=== PATIENT | male | born 1950 | race Caucasian/White ===

== ENCOUNTER 2017-08-27 14:00 | Outpatient (CLI) | payer MEDICARE ==
--- NOTE | 2017-08-27 15:06 | RAD ---
TWO VIEWS OF THE LUMBAR SPINE: Date: 08-27-17 Comparison: None available. History: Pain, fall. FINDINGS: Five lumbar type vertebral bodies are present with intact pedicles on frontal imaging. Lateral imagin g demonstrates mild anterolisthesis of L4 on L5 measuring approximately 5-6 mm. There is disc space n arrowing with degenerative endplate change at the level of the sacral junction. There is anterior ost eophyte formation at L2-3, L4-5, and L5-S1. There is multilevel lower lumbar spine facet hypertrophic change. No acute fracture or evidence of dislocation is seen. IMPRESSION: No acute findings. If there are radicular symptoms or symptoms persist, lumbar spine MRI advised. POS: [facility]
== END 2017-08-27 14:01 | disposition home or self-care (01) ==
LOC: TBSIIMAG 14:00
PROVIDERS: ATTEND Neurological Surgery
DX: M54.5 Low back pain (principal)
CPT/HCPCS: 72100

== ENCOUNTER 2021-06-07 12:32 | Outpatient (CLI) | payer OTHER | END 2021-06-07 12:33 | disposition home or self-care (01) | LOC: BICMRI 12:32 | PROVIDERS: ATTEND Neurological Surgery | DX: M47.26 Other spondylosis with radiculopathy, lumbar region (principal); M47.817 Spondylosis without myelopathy or radiculopathy, lumbosacral region; M54.50 Low back pain, unspecified; M48.061 Spinal stenosis, lumbar region without neurogenic claudication; M48.07 Spinal stenosis, lumbosacral region; Z98.890 Other specified postprocedural states | CPT/HCPCS: 72110; 72148 ==

== ENCOUNTER 2021-07-02 12:07 | Outpatient (CLI) | payer OTHER | END 2021-07-02 12:08 | disposition home or self-care (01) | LOC: BICRAD 12:07 | PROVIDERS: ATTEND Neurological Surgery | DX: M54.12 Radiculopathy, cervical region (principal); Z98.890 Other specified postprocedural states | CPT/HCPCS: 72050 ==

== ENCOUNTER 2021-09-04 12:12 | Outpatient (CLI) | payer OTHER | END 2021-09-04 12:13 | disposition home or self-care (01) | LOC: TBSIIMAG 12:12 | PROVIDERS: ATTEND Neurological Surgery | DX: M54.6 Pain in thoracic spine (principal); M47.814 Spondylosis without myelopathy or radiculopathy, thoracic region; M51.34 Other intervertebral disc degeneration, thoracic region | CPT/HCPCS: 72146 ==

== ENCOUNTER 2021-09-25 12:35 | Outpatient (CLI) | payer OTHER ==
[2021-09-25 14:14] LABS: Hemoglobin 11.7 g/dL (13.5-17.5); Mean Corpuscular HGB CONC 33.1 g/dL (32.0-36.0); Mean Corpuscular Hemoglobin 30.3 pg (27.0-33.0); Mean Corpuscular Volume 91.7 fl (81.2-95.1); Mean Platelet Volume 9.4 fl (7.4-10.4); Platelet Count 173 10x3/uL (150-450); RBC Distribution Width 12.8 % (11.5-14.5); Red Blood Cell (RBC) Count 3.86 10x6/uL (4.32-5.72); White Blood Cell (WBC) Count 7.6 10x3/uL (3.5-10.5)
[2021-09-25 14:45] LABS: INR-International Normal Ratio 1.1; PTT 24.1 sec (22.0-33.0); Prothrombin Time 12.3 sec (9.5-12.1)
[2021-09-25 22:06] LABS: SARS-CoV-2 PCR by NAA Not Detected (NotDetected)
== END 2021-09-25 12:36 | disposition home or self-care (01) ==
LOC: LABBT 12:35
PROVIDERS: ATTEND Neurological Surgery
DX: Z01.812 Encounter for preprocedural laboratory examination (principal); M51.26 Other intervertebral disc displacement, lumbar region; Z20.822 Contact with and (suspected) exposure to COVID-19
CPT/HCPCS: 85027; 85610; 85730; U0003; U0005

== ENCOUNTER 2024-03-25 11:46 | Outpatient (CLI) | payer OTHER ==
[2024-03-25 13:38] LABS: #Basophils 0.03 10x3/uL (0.0-0.2); %Basophils 0.5 % (0.0-1.0); %Eosinophils 4.5 % (0.0-10.0); %Lymphocytes 22.2 % (21.0-51.0); %Monocytes 7.2 % (0.0-10.0); %Neutrophils 65.3 % (42.0-75.0); Hematocrit 36.1 % (42.0-52.0); Hemoglobin 12.4 g/dL (14.0-18.0); Mean Corpuscular HGB CONC 34.3 g/dL (32.0-36.0); Mean Corpuscular Hemoglobin 31.5 pg (27.0-31.0); Mean Corpuscular Volume 91.6 fL (78.0-98.0); Mean Platelet Volume 9.1 fL (7.4-10.4); Platelet Count 203 10x3/uL (130-400); Red Blood Cell (RBC) Count 3.94 mill/uL (4.70-6.10)
[2024-03-25 13:57] LABS: INR-International Normal Ratio 1.5; PTT 30.2 sec (22.9-36.1); Prothrombin Time 18.6 sec (12.0-14.7)
[2024-03-25 13:58] LABS: Anion Gap 10 mmol/L (10-20); BUN (Urea Nitrogen) 17 mg/dL (8.4-25.7); Calc. Creatinine Clearance 0 mL/min (70-130); Calcium 9.5 mg/dL (7.8-10.44); Carbon Dioxide 28 mmol/L (23-31); Chloride 106 mmol/L (98-107); Estimated GFR 39; Glucose 96 mg/dL (83-110); Potassium 4.1 mmol/L (3.5-5.1); Sodium 140 mmol/L (136-145)
== END 2024-03-25 11:47 | disposition home or self-care (01) ==
LOC: LABBT 11:46
PROVIDERS: ATTEND Internal Medicine Cardiovascular Disease
DX: Z01.812 Encounter for preprocedural laboratory examination (principal); I49.5 Sick sinus syndrome
CPT/HCPCS: 80048; 85025; 85610; 85730

== ENCOUNTER 2025-01-26 12:19 | Emergency (ER) | payer MEDICARE, OTHER ==
[2025-01-26 12:59] LABS: #Basophils 0.06 10x3/uL (0.0-0.2); #Eosinophils 0.10 10x3/uL (0.0-0.7); #Monocytes 0.72 10x3/uL (0.11-0.59); #Neutrophils 7.78 10x3/uL (1.40-6.50); %Basophils 0.6 % (0.0-1.0); %Eosinophils 1.0 % (0.0-10.0); %Lymphocytes 16.8 % (21.0-51.0); %Monocytes 6.9 % (0.0-10.0); %Neutrophils 74.1 % (42.0-75.0); Hematocrit 36.8 % (42.0-52.0); Hemoglobin 12.8 g/dL (14.0-18.0); Mean Corpuscular Hemoglobin 31.8 pg (27.0-31.0); Mean Corpuscular Volume 91.5 fL (78.0-98.0); Platelet Count 241 10x3/uL (130-400); Red Blood Cell (RBC) Count 4.02 mill/uL (4.70-6.10); White Blood Cell (WBC) Count 10.48 10x3/uL (4.8-10.8)
[2025-01-26 13:13] LABS: ALT (SGPT) 14 U/L (Less than 45); AST (SGOT) 15 U/L (11-34); Albumin 4.0 g/dL (3.1-4.5); Alkaline Phosphatase 75 U/L (40-110); Anion Gap 11 mmol/L (10-20); BUN (Urea Nitrogen) 20 mg/dL (8.4-25.7); Bilirubin, Total 0.4 mg/dL (0.3-1.2); Calc. Creatinine Clearance 0 mL/min (70-130); Calcium 9.4 mg/dL (7.8-10.44); Carbon Dioxide 27 mmol/L (23-31); Chloride 104 mmol/L (98-107); Globulin 3.8 g/dL (2.4-3.5); Glucose 109 mg/dL (83-110); Lipase 15 U/L (8-78); Potassium 4.4 mmol/L (3.5-5.1); Sodium 138 mmol/L (136-145)
[2025-01-26 13:18] LABS: Troponin I Less than 0.010 ng/mL (< 0.028)
[2025-01-26 14:00] LABS: Bacteria/HPF None Seen HPF (None Seen); CAUTI Indications for Culture Pelvic or flank pain; Glucose, Urine (Dipstick) Normal (Negative); Leukocyte Negative Leu/uL (Negative); Protein, Urine (Dipstick) 20 mg/dL (Neg-Trace); RBC/HPF 0-3 HPF (0-3); Specific Gravity, Urine 1.024 (1.002-1.036); WBC/HPF 0-3 HPF (0-3)
[2025-01-26 14:03] LABS: Urine Culture Reflex No No
== END 2025-01-26 15:41 | disposition home or self-care (01) ==
LOC: ERS 12:19
DX: R10.9 Unspecified abdominal pain (principal)
CPT/HCPCS: 36415; 70450; 71045; 74177; 80053; 81001; 83690; 83880; 84484; 85025; 93005